=== PATIENT | female | born 1975 | race Caucasian/White ===

== ENCOUNTER 2019-03-14 22:43 | Emergency (ER) | payer MEDICAID ==
[~2019-03-14] VITALS: Ht 165.1 cm; Wt 81.2 kg
[2019-03-14 22:55] VITALS: BP 130/68
--- NOTE | 2019-03-14 22:57 | NUR ---
TO LOBBY A/W BED. AMBULATORY
--- NOTE | 2019-03-14 23:22 | NUR ---
PT TAKEN TO BED 4
--- NOTE | 2019-03-14 23:29 | NUR ---
PT IS A 43 Y/O FEMALE WHO PRESENTS TO THE ED C/O LOW BACK PAIN. PT STATES THAT PAIN HAS BEEN GOING ON X3 WEEKS. PT REPORTS 8/10 ACHING LOW BACK PAIN THAT DOES NOT RADIATE. NO OBVIOUS TRAUMA/DEFORMITY. PT TOOK MOTRIN WITH NO RELIEF. PT DENIES CP, SOB, N/V/D. PT AWAKE AND ALERT, RR EVEN/UNLABORED. PT REPOSITIONED FOR COMFORT, BED IN LOWEST POSITION. ER MD DR. SYLVESTER NOTIFIED. WILL CONTINUE TO MONITOR. DENIES [facility]
[2019-03-14] MEDS ORDERED: KETOROLAC 60 MG/2 ML VIAL IM ONE (23:30)
--- NOTE | 2019-03-15 00:22 | NUR ---
Dr. Miller evaluating patient at bedside.
[2019-03-15] MEDS ORDERED: MORPHINE SULFATE 4 MG/ML SYR IM ONE (00:25)
[2019-03-15 01:05] VITALS: BP 137/72
--- NOTE | 2019-03-15 01:05 | NUR ---
Patient discharged with v/s stable. Written and verbal after care instructions given and explained. Patient alert, oriented and verbalized understanding of instructions. Ambulatory with steady gait. All questions addressed prior to discharge. ID band removed. Patient advised to follow up with PMD. Rx of NORCO 5MG-325MG AND MOTRIN 800MG given. Patient educated on indication of medication including possible reaction and side effects. Opportunity to ask questions provided and answered.
== END 2019-03-15 01:05 | disposition home or self-care (01) ==
LOC: MED 22:43
DX: M54.5 Low back pain (principal)
CPT/HCPCS: 81002; 81025; 96372; 99283; J1885; J2270